=== PATIENT | female | born 1985 ===

== ENCOUNTER 2016-07-29 06:44 | Day surgery (SDC) | payer OTHER ==
[2016-07-27 11:05] VITALS: BMI 21.7
[2016-07-29] MEDS ORDERED: ceFAZolin IV 1 gm in Dextrose 50 ML IVPB ONE (07:30)
[2016-07-29] MEDS ORDERED: HEPARIN-NS 5,000 UNITS/500 ML 500 ML IV ONE (07:50)
[2016-07-29 07:52] VITALS: O2SAT 100
[2016-07-29] MEDS ORDERED: Sodium Chloride 0.9% 500 ML IV ONE ×2 (08:00→09:30)
[2016-07-29] MEDS ORDERED: Midazolam 2 MG/2 ML VIAL ONE (08:04)
[2016-07-29] MEDS ORDERED: Propofol 10 mg/ml Inj (20 ML) ONE (08:04)
[2016-07-29 08:10] LABS: POTASSIUM 5.5 mmol/L (3.6-5.2)
[2016-07-29 08:13] LABS: CALCIUM 8.1 mg/dl (8.6-10.4)
--- NOTE | 2016-07-29 10:16 | PCM.SURG1 ---
Surgeon's Initial Post Op Note - Surgeon's Notes Surgeon: Fabiana Food Service Ambassador: [id number] Type of Anesthesia: General LMA Pre-Operative Diagnosis: ESRD Operative Findings: see op report Post-Operative Diagnosis: ESRD Operation Performed: L snuff box AVF creation Specimen/Specimens Removed: N/A Estimated Blood Loss: EBL {In ML}: 10 Blood Products Given: N/A Drains Used: No Drains Post-Op Condition: Good Date of Surgery/Procedure: 07/29/16 Time of Surgery/Procedure: 07:55
[2016-07-29 10:36] VITALS: TEMP 97
[2016-07-29 11:32] VITALS: RESP 16
[2016-07-29 11:48] VITALS: BP 124/82; PULSE 80
--- NOTE | 2016-07-29 11:54 | OP ---
PROCEDURE DATE: 07/29/2016 PREOPERATIVE DIAGNOSIS: Renal failure. POSTOPERATIVE DIAGNOSIS: Renal failure. PROCEDURE CARRIED OUT: Snuffbox fistula, left wrist. SURGEON: Scooby Jung Jr., MD JIG OPERATOR: Dr. Pandya, resident. ANESTHESIOLOGIST: Mr. Trejo. INDICATIONS: The patient is a young woman with a history of hypertension, renal insufficiency, had d eclined dialysis previously. OPERATIVE FINDINGS: A fistula was created between the cephalic vein and the branch of the radial art johnny using loupe magnification and heparin anticoagulation. PROCEDURE: The patient was given general anesthesia, intravenous antibiotics. The vein was mapped o n the skin with the use of ultrasound. The adjacent superficial branch of the radial artery was iden tified and an end-to-side anastomosis was created again using loupe magnification and heparin anticoa gulation. After obtaining hemostasis, the wound was closed with interrupted sutures of nylon in a la yered closure. Blood loss of the procedure was less than 15 mL. OPERATION CARRIED OUT: Snuffbox fistula, left wrist. At the end of the procedure, the patient had an excellent thrill and a visible vein in the forearm, a lthough the vessels were quite small. Scooby Jung Jr., MD cc:Darling Faith MD 56 TT: 07/29/2016 11:54:07 an
== END 2016-07-29 11:52 | disposition home or self-care (01) ==
LOC: C.SDS 06:44
PROVIDERS: ATTEND Surgery Vascular Surgery
DX: I12.0 Hypertensive chronic kidney disease with stage 5 chronic kidney disease or end stage renal disease (principal); N18.6 End stage renal disease; Z99.2 Dependence on renal dialysis; D64.9 Anemia, unspecified; Z79.899 Other long term (current) drug therapy

== ENCOUNTER 2016-11-01 11:58 | Inpatient (IN) | payer OTHER ==
[2016-11-01 11:58] VITALS: BMI 21.7
[2016-11-01 12:55] LABS: EOS # 0.1 K/uL (0.0-0.7); EOS % 1.9 % (0.0-4.0); HEMATOCRIT 31.9 % (34.0-47.0); LYMPH # 1.1 K/uL (1.0-4.3); LYMPH % 22.1 % (20.0-40.0); MEAN CELL VOLUME 81.4 fL (81.0-99.0); MEAN CORPUSCULAR HGB CONC 31.9 g/dL (33.0-37.0); MEAN PLATELET VOLUME 7.9 fL (7.2-11.7); MONO # 0.4 K/uL (0.0-0.8); MONO % 8.9 % (0.0-10.0); NRBC % 0.1 % (0.0-2.0); RED CELL DISTRIBUTION WIDTH 16.4 % (11.5-14.5); WHITE BLOOD COUNT 4.9 K/uL (4.8-10.8)
[2016-11-01 13:07] LABS: POTASSIUM 4.9 mmol/L (3.6-5.2)
[2016-11-01 13:09] LABS: BILIRUBIN,TOTAL 0.6 mg/dL (0.2-1.3)
[2016-11-01 13:10] LABS: ALB/GLOB RATIO 1.2 (1.0-2.1); CALCIUM 7.4 mg/dl (8.6-10.4); TOTAL PROTEIN 7.7 g/dL (6.3-8.3)
--- NOTE | 2016-11-01 14:09 | RAD ---
PROCEDURE: CHEST RADIOGRAPH, 1 VIEW HISTORY: pre-admission COMPARISON: 07/27/2016. FINDINGS: LUNGS: The lungs are well inflated and clear. PLEURA: No pneumothorax or pleural fluid seen. CARDIOVASCULAR: Normal. OSSEOUS STRUCTURES: No significant abnormalities. VISUALIZED UPPER ABDOMEN: Normal. OTHER FINDINGS: None. IMPRESSION: No active pulmonary disease.
--- NOTE | 2016-11-01 14:31 | C.PDOC ---
History Of Present Illness 31-year-old female, PMHx includes ESRD, Hypertension and Anemia, is sent to the emergency department, for worsened creatinine and needs hemodialysis. Patient states she had surgery and fistula placed in left arm. Pt states she still makes urine. Denies chest pain, shortness of breath, nausea/vomiting, dizziness , fevers, chills, or any other associated symptoms. No other complaints at this time. Nephro Dr Faith Time Seen by Provider: 11/01/16 12:20 Chief Complaint (Nursing): Medical Clearance History Per: Patient History/Exam Limitations: no limitations Past Medical History Reviewed: Historical Data, Nursing Documentation, Vital Signs Vital Signs: Last Vital Signs Temp 97.9 F 11/01/16 18:25 Pulse 73 11/01/16 18:25 Resp 20 11/01/16 18:25 BP 152/94 H 11/01/16 18:40 Pulse Ox 97 11/01/16 18:25 - Medical History PMH: Anemia, HTN, End Stage Renal Disease, Chronic Kidney Disease Family History: States: No Known Family Hx - Social History Hx Alcohol Use: No Hx Substance Use: No - Immunization History Hx Tetanus Toxoid Vaccination: No Hx Influenza Vaccination: No Hx Pneumococcal Vaccination: No Review Of Systems Except As Marked, All Systems Reviewed And Found Negative. Constitutional: Negative for: Fever, Chills Cardiovascular: Negative for: Chest Pain, Palpitations Respiratory: Negative for: Shortness of Breath Gastrointestinal: Negative for: Nausea, Vomiting Musculoskeletal: Negative for: Back Pain Neurological: Negative for: Headache, Dizziness Physical Exam - Physical Exam Appears: Non-toxic, No Acute Distress Skin: Warm, Dry, No Rash Head: Atraumatic, Normacephalic Eye(s): bilateral: Normal Inspection, PERRL, EOMI Nose: Normal Oral Mucosa: Moist Lips: Normal Appearing Neck: Normal ROM, Supple Cardiovascular: Rhythm Regular, No Friction Rub, No Murmur Respiratory: Normal Breath Sounds, No Accessory Muscle Use Gastrointestinal/Abdominal: Soft, No Tenderness Back: No Vertebral Tenderness Extremity: Normal ROM, No Tenderness, No Swelling, Other (Fistula in left arm, palpable thrill.) Pulses: Left Radial: Normal, Right Radial: Normal Neurological/Psych: Oriented x3, Normal Speech, Normal Motor Gait: Steady ED Course And Treatment - Laboratory Results Result Diagrams: 11/01/16 12:43 11/01/16 12:43 O2 Sat by Pulse Oximetry: 100 (on RA) Pulse Ox Interpretation: Normal Progress Note: Three calls placed to Dr. Ryder with no response. Case was discussed with Dr. Watson who agrees to admit the patient. Disposition - Disposition Disposition: HOSPITALIZED Disposition Time: 13:30 Condition: GOOD - POA Present On Arrival: None - Clinical Impression Clinical Impression: Renal failure - PA / MATH TEACHER / Resident Statement MD/DO has reviewed & agrees with the documentation as recorded. - Scribe Statement The provider has reviewed the documentation as recorded by the Scribe (Coral Nayak) All medical record entries made by the Scribe were at my direction and personally dictated by me. I have reviewed the chart and agree that the record accurately reflects my personal performance of the history, physical exam, medical decision making, and the department course for this patient. I have also personally directed, reviewed, and agree with the discharge instructions and disposition.
--- NOTE | 2016-11-01 17:51 | CP.PCM.CON ---
History of Present Illness - History of Present Illness History of Present Illness: pt seen and examined, full consult is dictated #[id number] 1. esrd 2. hypertension 3. met. acidosis 4. fibroid uterus pt agreed for hemodialysis for hd now, and in am check pth intact social service consult for out pt hd unit placement in [facility] dialysis unit if pt agrees Past Patient History - Infectious Disease Hx of Infectious Diseases: None - Past Medical History & Family History Past Medical History?: Yes - Past Social History Smoking Status: Never Smoked - CARDIAC Hx Hypertension: Yes - PULMONARY Hx Respiratory Disorders: No - NEUROLOGICAL Hx Neurological Disorder: No - HEENT Hx HEENT Problems: No - RENAL Hx Chronic Kidney Disease: Yes - ENDOCRINE/METABOLIC Hx Endocrine Disorders: No - HEMATOLOGICAL/ONCOLOGICAL Hx Anemia: Yes - INTEGUMENTARY Hx Dermatological Problems: No - MUSCULOSKELETAL/RHEUMATOLOGICAL Hx Musculoskeletal Disorders: No Hx Falls: No - GASTROINTESTINAL Hx Gastrointestinal Disorders: No - GENITOURINARY/GYNECOLOGICAL Hx Genitourinary Disorders: Yes Other/Comment: Fibroids - PSYCHIATRIC Hx Substance Use: No - SURGICAL HISTORY Hx Surgeries: Yes Other/Comment: FISTULA - ANESTHESIA Hx Anesthesia: Yes Hx Anesthesia Reactions: No Hx Malignant Hyperthermia: No Meds Allergies/Adverse Reactions: Allergies Allergy/AdvReac Type Severity Reaction Status Date / Time No Known Allergies Allergy Verified 05/18/16 10:16 Results - Vital Signs Recent Vital Signs: Last Vital Signs Temp 97.9 F 11/01/16 17:42 Pulse 78 11/01/16 17:42 Resp 20 11/01/16 17:42 BP 159/98 H 11/01/16 17:42 Pulse Ox 99 11/01/16 17:42 - Labs Result Diagrams: 11/01/16 12:43 11/01/16 12:43
--- NOTE | 2016-11-01 19:33 | CP.PCM.HP ---
Past Patient History - Infectious Disease Hx of Infectious Diseases: None - Past Medical History & Family History Past Medical History?: Yes - Past Social History Smoking Status: Never Smoked - CARDIAC Hx Hypertension: Yes - PULMONARY Hx Respiratory Disorders: No - NEUROLOGICAL Hx Neurological Disorder: No - HEENT Hx HEENT Problems: No - RENAL Hx Chronic Kidney Disease: Yes - ENDOCRINE/METABOLIC Hx Endocrine Disorders: No - HEMATOLOGICAL/ONCOLOGICAL Hx Anemia: Yes - INTEGUMENTARY Hx Dermatological Problems: No - MUSCULOSKELETAL/RHEUMATOLOGICAL Hx Musculoskeletal Disorders: No Hx Falls: No - GASTROINTESTINAL Hx Gastrointestinal Disorders: No - GENITOURINARY/GYNECOLOGICAL Hx Genitourinary Disorders: Yes Other/Comment: Fibroids - PSYCHIATRIC Hx Substance Use: No - SURGICAL HISTORY Hx Surgeries: Yes Other/Comment: FISTULA - ANESTHESIA Hx Anesthesia: Yes Hx Anesthesia Reactions: No Hx Malignant Hyperthermia: No Meds Allergies/Adverse Reactions: Allergies Allergy/AdvReac Type Severity Reaction Status Date / Time No Known Allergies Allergy Verified 05/18/16 10:16 Results - Vital Signs Recent Vital Signs: Last Vital Signs Temp 97.9 F 11/01/16 18:25 Pulse 73 11/01/16 19:05 Resp 20 11/01/16 19:05 BP 154/95 H 11/01/16 19:10 Pulse Ox 100 11/01/16 19:02 - Labs Result Diagrams: 11/01/16 12:43 11/01/16 12:43
[2016-11-01] MEDS: Prazosin HCL 5 mg PO SCH (22:12)
[2016-11-02 09:14] LABS: IRON 70 ug/dL (37-170)
[2016-11-02 09:17] LABS: POTASSIUM 4.3 mmol/L (3.6-5.2)
[2016-11-02 09:20] LABS: CALCIUM 7.7 mg/dl (8.6-10.4)
[2016-11-02] MEDS: Multivitamin Vitamin B Complex (Nephro-Vite) Tab PO SCH (09:49)
[2016-11-02] MEDS: Prazosin HCL 5 mg PO SCH ×4 (09:49→19:19)
[2016-11-02] MEDS ORDERED: Paricalcitol 2 mcg/ml Inj IV SCH (10:00)
--- NOTE | 2016-11-02 12:12 | CP.PCM.PN ---
Subjective - Date & Time of Evaluation Date of Evaluation: 11/02/16 Time of Evaluation: 12:11 - Subjective Subjective: pt seen and examined, pt denies any complaints. no n/v/d/fever/cough/sob s/p first hd yesterday for second hd today Objective - Vital Signs/Intake and Output Vital Signs (last 24 hours): Temp Pulse Resp BP Pulse Ox 98.2 F 69 20 130/80 100 11/02/16 07:25 11/02/16 07:25 11/02/16 07:25 11/02/16 09:50 11/02/16 07:25 Intake and Output: 11/02/16 11/02/16 06:59 18:59 Intake Total 600 Balance 600 - Medications Medications: Current Medications Amlodipine Besylate (Norvasc) 5 mg PO DAILY [facility] Last Admin: 11/02/16 09:50 Dose: 5 mg Carvedilol (Coreg) 25 mg PO BID [facility] Last Admin: 11/02/16 09:50 Dose: 25 mg Ferrous Sulfate (Feosol) 325 mg PO DAILY [facility] Last Admin: 11/02/16 09:50 Dose: 325 mg Heparin Sodium (Porcine) (Heparin) 5,000 units SC DAILY [facility] Last Admin: 11/02/16 09:53 Dose: Not Given Pantoprazole Sodium (Protonix Inj) 40 mg IVP DAILY [facility] Last Admin: 11/02/16 09:50 Dose: 40 mg Paricalcitol (Zemplar) 2 mcg IV TTS [facility] Prazosin HCl (Minipress) 5 mg PO TID [facility] Last Admin: 11/02/16 09:49 Dose: 5 mg Vitamin B Complex/Vit C/Folic Acid (Nephro-Haven) 1 tab PO 0800 [facility] Last Admin: 11/02/16 09:49 Dose: 1 tab - Labs Labs: 11/02/16 08:38 - Constitutional Appears: Well, No Acute Distress - Head Exam Head Exam: ATRAUMATIC, NORMAL INSPECTION, NORMOCEPHALIC - Eye Exam Eye Exam: EOMI, Normal appearance, PERRL Pupil Exam: NORMAL ACCOMODATION, PERRL - ENT Exam ENT Exam: Mucous Membranes Moist, Normal Exam - Neck Exam Neck Exam: Full ROM, Normal Inspection. absent: Lymphadenopathy - Respiratory Exam Respiratory Exam: Clear to Ausculation Bilateral, NORMAL BREATHING PATTERN - Cardiovascular Exam Cardiovascular Exam: REGULAR RHYTHM, +S1, +S2. absent: Murmur - GI/Abdominal Exam GI & Abdominal Exam: Soft, Normal Bowel Sounds. absent: Tenderness - Rectal Exam Rectal Exam: Deferred - Neurological Exam Neurological Exam: Alert, Awake, CN II-XII Intact, Normal Gait, Oriented x3 - Psychiatric Exam Psychiatric exam: Normal Affect, Normal Mood - Skin Skin Exam: Dry, Intact, Normal Color, Warm Assessment and Plan - Assessment and Plan (Free Text) Plan: yo Female with htn, esrd, anemia, met. acidosis, sec.hpth with worsening renal function , started on hd yesterday 1. ESRD, continue with hd 3 x aweek, tolerated well with first hd 2. HTN, bp is stable, c/w current home meds, coreg, amlodipine, prazosin follow up social service for out pt hd unit placement d/w case technician hepb serology, hept.c serology are negative
--- NOTE | 2016-11-02 14:29 | CP.PCM.PN ---
Subjective - Date & Time of Evaluation Date of Evaluation: 11/02/16 Time of Evaluation: 10:40 - Subjective Subjective: clinically same Objective - Vital Signs/Intake and Output Vital Signs (last 24 hours): Temp Pulse Resp BP Pulse Ox 98.2 F 65 16 131/85 100 11/02/16 12:50 11/02/16 12:50 11/02/16 12:50 11/02/16 13:35 11/02/16 12:50 Intake and Output: 11/02/16 11/02/16 06:59 18:59 Intake Total 600 Balance 600 - Medications Medications: Current Medications Amlodipine Besylate (Norvasc) 5 mg PO DAILY [facility] Last Admin: 11/02/16 09:50 Dose: 5 mg Carvedilol (Coreg) 25 mg PO BID [facility] Last Admin: 11/02/16 09:50 Dose: 25 mg Ferrous Sulfate (Feosol) 325 mg PO DAILY [facility] Last Admin: 11/02/16 09:50 Dose: 325 mg Heparin Sodium (Porcine) (Heparin) 5,000 units SC DAILY [facility] Last Admin: 11/02/16 09:53 Dose: Not Given Pantoprazole Sodium (Protonix Inj) 40 mg IVP DAILY [facility] Last Admin: 11/02/16 09:50 Dose: 40 mg Paricalcitol (Zemplar) 2 mcg IV TTS [facility] Prazosin HCl (Minipress) 5 mg PO TID [facility] Last Admin: 11/02/16 13:14 Dose: Not Given Vitamin B Complex/Vit C/Folic Acid (Nephro-Haven) 1 tab PO 0800 [facility] Last Admin: 11/02/16 09:49 Dose: 1 tab - Labs Labs: 11/02/16 08:38 - Constitutional Appears: Well - Head Exam Head Exam: ATRAUMATIC, NORMAL INSPECTION, NORMOCEPHALIC - Eye Exam Eye Exam: EOMI, Normal appearance, PERRL Pupil Exam: NORMAL ACCOMODATION, PERRL - ENT Exam ENT Exam: Mucous Membranes Moist, Normal Exam - Neck Exam Neck Exam: Full ROM, Normal Inspection. absent: Lymphadenopathy - Respiratory Exam Respiratory Exam: Decreased Breath Sounds - Cardiovascular Exam Cardiovascular Exam: REGULAR RHYTHM, +S1, +S2 - GI/Abdominal Exam GI & Abdominal Exam: Soft, Diminished Bowel Sounds - Rectal Exam Rectal Exam: Deferred
[2016-11-03 00:40] VITALS: RESP 20
[2016-11-03] MEDS: Multivitamin Vitamin B Complex (Nephro-Vite) Tab PO SCH (07:44)
[2016-11-03 08:05] VITALS: PULSE 106; TEMP 98; O2SAT 94
[2016-11-03] MEDS: Prazosin HCL 5 mg PO SCH ×2 (09:22→13:26)
[2016-11-03 09:25] VITALS: BP 149/90
--- NOTE | 2016-11-03 12:43 | CP.PCM.PN ---
Subjective - Date & Time of Evaluation Date of Evaluation: 11/03/16 Time of Evaluation: 12:42 - Subjective Subjective: pt seen and examined, by me, no complaints, no sob pt is accepted to [facility] pt can be discharged home today after schedule is available Objective - Vital Signs/Intake and Output Vital Signs (last 24 hours): Temp Pulse Resp BP Pulse Ox 98.0 F 106 H 20 149/90 94 L 11/03/16 07:05 11/03/16 07:05 11/03/16 07:05 11/03/16 09:21 11/03/16 07:05 - Medications Medications: Current Medications Amlodipine Besylate (Norvasc) 5 mg PO DAILY [facility] Last Admin: 11/03/16 09:21 Dose: 5 mg Carvedilol (Coreg) 25 mg PO BID [facility] Last Admin: 11/03/16 09:21 Dose: 25 mg Ferrous Sulfate (Feosol) 325 mg PO DAILY [facility] Last Admin: 11/03/16 09:21 Dose: 325 mg Heparin Sodium (Porcine) (Heparin) 5,000 units SC DAILY [facility] Last Admin: 11/03/16 09:22 Dose: Not Given Pantoprazole Sodium (Protonix Ec Tab) 40 mg PO DAILY [facility] Paricalcitol (Zemplar) 2 mcg IV TTS [facility] Last Admin: 11/02/16 14:47 Dose: 2 mcg Prazosin HCl (Minipress) 5 mg PO TID [facility] Last Admin: 11/03/16 09:22 Dose: 5 mg Vitamin B Complex/Vit C/Folic Acid (Nephro-Haven) 1 tab PO 0800 [facility] Last Admin: 11/03/16 07:44 Dose: 1 tab - Labs Labs: 11/02/16 08:38 - Constitutional Appears: Well, No Acute Distress - Head Exam Head Exam: ATRAUMATIC, NORMAL INSPECTION, NORMOCEPHALIC - Eye Exam Eye Exam: EOMI, Normal appearance, PERRL Pupil Exam: NORMAL ACCOMODATION, PERRL - ENT Exam ENT Exam: Mucous Membranes Moist, Normal Exam - Neck Exam Neck Exam: Full ROM, Normal Inspection. absent: Lymphadenopathy - Respiratory Exam Respiratory Exam: Clear to Ausculation Bilateral, NORMAL BREATHING PATTERN - Cardiovascular Exam Cardiovascular Exam: REGULAR RHYTHM, +S1, +S2. absent: Murmur - GI/Abdominal Exam GI & Abdominal Exam: Soft, Normal Bowel Sounds. absent: Tenderness - Rectal Exam Rectal Exam: Deferred Additional comments: deferred - Exam Additional comments: deferred - Extremities Exam Extremities Exam: Full ROM, Normal Capillary Refill, Normal Inspection. absent : Joint Swelling, Pedal Edema - Back Exam Back Exam: NORMAL INSPECTION - Neurological Exam Neurological Exam: Alert, Awake, CN II-XII Intact, Normal Gait, Oriented x3 - Psychiatric Exam Psychiatric exam: Normal Affect, Normal Mood - Skin Skin Exam: Dry, Intact, Normal Color, Warm Assessment and Plan - Assessment and Plan (Free Text) Plan: 31 yo Female with pmh/o HTN, CKD-5, anemia, sec. hpth, hyperkalemia, met. acidosis was admitted with increasing bun/cr and started on hemodialysis 1. ESRD, sec to hypertension and /or renovascular disease c/w hd 3 x a week TTS 2. HTN, bp is stable, c/w current meds 3. Anemia, h/h is stable. pt is accepted to out pt HD at [facility] hD unit, [place] zeynep Ramirez can be d/evgeny home from [place]al [place]
[2016-11-04] MEDS ORDERED: Pantoprazole 40 mg EC Tab PO SCH (10:00)
== END 2016-11-03 14:40 | disposition home or self-care (01) | DRG 316 ==
LOC: C.ER 11:58 → C.5T 15:56 → C.9E 15:56
PROVIDERS: ADMIT Internal Medicine Nephrology; ATTEND Internal Medicine Nephrology
PROC: 5A1D00Z (ICD-10-PCS; principal; 2016-11-01)
DX: I12.0 Hypertensive chronic kidney disease with stage 5 chronic kidney disease or end stage renal disease (principal); N18.6 End stage renal disease; E87.2 Acidosis; E87.5 Hyperkalemia; D63.1 Anemia in chronic kidney disease; Z99.2 Dependence on renal dialysis